=== PATIENT | female | born 1940 | race Caucasian/White ===

== ENCOUNTER 2021-10-11 10:27 | Inpatient (IN) | payer MEDICARE, MEDICAID ==
[2021-10-11] MEDS ORDERED: Sodium Chloride 0.9% 10 ML Syringe FLUSH PRN (11:02)
[2021-10-11] MEDS ORDERED: Ondansetron 4 MG/2 ML SDV IVPUSH ONE (11:02)
[2021-10-11] MEDS ORDERED: Pantoprazole 40 MG Vial IVPUSH ONE (11:04)
[2021-10-11] MEDS ORDERED: Sodium Chloride 0.9% 1,000 ML IV SCH (11:15)
[2021-10-11] MEDS ORDERED: Acetaminophen 325 MG Tab PO PRN (16:51)
[2021-10-11 19:03] LABS: HEMOGLOBIN A1C 5.8 %
[2021-10-11] MEDS: Metoprolol Tartrate 25 MG Tab PO SCH (20:07)
[2021-10-11] MEDS: Pantoprazole 40 MG Vial IV SCH (20:07)
[2021-10-11] MEDS ORDERED: Oxybutynin 5 MG Tab PO SCH (21:00)
[2021-10-11] MEDS: Sodium Chloride 0.9% 1,000 ML IV SCH (21:04)
[2021-10-12] MEDS: Sodium Chloride 0.9% 1,000 ML IV SCH ×2 (05:24→12:50)
[2021-10-12] MEDS ORDERED: Lisinopril 20 MG Tab PO SCH (09:00)
[2021-10-12] MEDS: Metoprolol Tartrate 25 MG Tab PO SCH (09:09)
[2021-10-12] MEDS: Pantoprazole 40 MG Vial IV SCH (09:11)
== END 2021-10-12 16:07 | disposition home or self-care (01) | DRG 378 ==
LOC: JD.ED 10:27 → JD.MS 13:09
PROVIDERS: ADMIT Emergency Medicine; ATTEND Internal Medicine
DX: K92.0 Hematemesis (principal); K92.1 Melena; K25.4 Chronic or unspecified gastric ulcer with hemorrhage; D62 Acute posthemorrhagic anemia; T39.395A Adverse effect of other nonsteroidal anti-inflammatory drugs [NSAID], initial encounter; I25.10 Atherosclerotic heart disease of native coronary artery without angina pectoris; I10 Essential (primary) hypertension; M19.90 Unspecified osteoarthritis, unspecified site; Z20.822 Contact with and (suspected) exposure to COVID-19; Z79.01 Long term (current) use of anticoagulants; Z79.82 Long term (current) use of aspirin; Z95.5 Presence of coronary angioplasty implant and graft; Z79.899 Other long term (current) drug therapy
CPT/HCPCS: 36415; 80053; 85025; 85610; 86850; 86900; 86901; 93005; C9113; J2405; J7030; U0002; 83036; 85014; 85018; 96374; 96375; 99285-25; A9270-GY

== ENCOUNTER 2021-11-14 06:46 | Day surgery (SDC) | payer MEDICARE, MEDICAID ==
[~2021-11-14 06:46] MED LIST: Lactated Ringers 1,000 ML IV SCH; Lidocaine 1%/Sod Bicarbonate in NS 8.4% 1 ML Syringe IDERM PRN; Sodium Chloride 0.9% 10 ML Syringe FLUSH PRN; Sodium Chloride 0.9% 10 ML Syringe FLUSH SCH
[2021-11-14] MEDS ORDERED: fentaNYL 100 MCG/2 ML SDV ONE (07:05)
[2021-11-14] MEDS ORDERED: Propofol 200 MG/20 ML SDV ONE (07:05)
[2021-11-14] MEDS ORDERED: Lidocaine 1% 4 ML ONE (07:59)
== END 2021-11-14 09:39 | disposition home or self-care (01) ==
LOC: JD.SDS 06:46
PROVIDERS: ATTEND Surgery
DX: D12.0 Benign neoplasm of cecum (principal); D12.2 Benign neoplasm of ascending colon; K57.30 Diverticulosis of large intestine without perforation or abscess without bleeding; K57.10 Diverticulosis of small intestine without perforation or abscess without bleeding; K44.9 Diaphragmatic hernia without obstruction or gangrene; I48.91 Unspecified atrial fibrillation; I25.10 Atherosclerotic heart disease of native coronary artery without angina pectoris; E78.5 Hyperlipidemia, unspecified; I10 Essential (primary) hypertension; Z98.890 Other specified postprocedural states; Z79.01 Long term (current) use of anticoagulants; Z79.899 Other long term (current) drug therapy
CPT/HCPCS: 43235; 45380; 45381; 45385; J2704; J7120; 00813; 99100; J3010

== ENCOUNTER 2021-12-28 17:27 | Inpatient (IN) | payer MEDICARE, MEDICAID ==
[2021-12-28] MEDS ORDERED: Sodium Chloride 0.9% 10 ML Syringe FLUSH PRN (18:06)
[2021-12-28] MEDS ORDERED: Iopamidol 755 Mg/ML 100 ML Bottle IVPUSH ONE (18:50)
[2021-12-28] MEDS ORDERED: Sodium Chloride 0.9% 10 ML Syringe FLUSH ONE (18:50)
[2021-12-28] MEDS ORDERED: Sodium Chloride 0.9% 100 ML IV SCH (19:00)
[2021-12-29] MEDS ORDERED: Sodium Chloride 0.9% 10 ML Syringe FLUSH PRN (00:15)
[2021-12-29] MEDS ORDERED: Acetaminophen 325 MG Tab PO PRN (00:18)
[2021-12-29] MEDS ORDERED: Capsaicin 0.1% Cream 42.5 GM Tube TOP PRN (07:06)
[2021-12-29] MEDS ORDERED: Triamcinolone Acetonide 0.1% Crm 15 GM Tube TOP SCH (09:00)
[2021-12-29] MEDS ORDERED: CYCLOSPORINE EYEBOTH SCH (09:00)
[2021-12-29] MEDS ORDERED: Lisinopril 20 MG Tab PO SCH (09:00)
[2021-12-29] MEDS ORDERED: Metoprolol Tartrate 25 MG Tab PO SCH (09:00)
[2021-12-29] MEDS ORDERED: Apixaban 5 MG Tab PO SCH (09:00)
[2021-12-29] MEDS ORDERED: Nystatin Crm 30 GM Tube TOP SCH (09:00)
[2021-12-29] MEDS ORDERED: Pantoprazole 40 MG Tab.CR PO SCH (09:00)
[2021-12-29] MEDS ORDERED: Oxybutynin 5 MG Tab.ER PO SCH (21:00)
[2021-12-29] MEDS ORDERED: atorvaSTATin 20 MG Tab PO SCH (21:00)
== END 2021-12-29 17:35 | disposition home health service (06) | DRG 93 ==
LOC: JD.ED 17:27 → JD.MS 20:21
PROVIDERS: ADMIT Emergency Medicine; ATTEND Internal Medicine
DX: I63.9 Cerebral infarction, unspecified (principal); R47.1 Dysarthria and anarthria; Z66 Do not resuscitate; N18.32 Chronic kidney disease, stage 3b; I48.91 Unspecified atrial fibrillation; H91.90 Unspecified hearing loss, unspecified ear; I25.10 Atherosclerotic heart disease of native coronary artery without angina pectoris; I10 Essential (primary) hypertension; M19.90 Unspecified osteoarthritis, unspecified site; E66.9 Obesity, unspecified; Z79.01 Long term (current) use of anticoagulants; Z79.82 Long term (current) use of aspirin; Z79.899 Other long term (current) drug therapy; Z95.5 Presence of coronary angioplasty implant and graft; Z86.19 Personal history of other infectious and parasitic diseases; Z90.89 Acquired absence of other organs; Z68.35 Body mass index [BMI] 35.0-35.9, adult
CPT/HCPCS: 36415; 70450; 70450-26; 70496; 70496-26; 70498; 70498-26; 70551; 70551-26; 80053; 82947; 83735; 84484; 85025; 85610; 85730; 92610-GN; 93005; 93010; 96360; 97116-GP; 97162-GP; 99284; 99285-25; A9270-GY; J3490; Q9967

== ENCOUNTER 2023-07-23 07:50 | Day surgery (SDC) | payer MEDICARE, MEDICAID ==
[~2023-07-23 07:50] MED LIST changes: -Lidocaine 1%/Sod Bicarbonate in NS 8.4% 1 ML Syringe IDERM PRN
[2023-07-23 08:38] LABS: INR 0.97; PROTHROMBIN TIME 10.4 SECONDS (9.7-12.0)
[2023-07-23] MEDS ORDERED: ceFAZolin 2 GM Vial ONE (09:03)
[2023-07-23] MEDS ORDERED: Propofol 200 MG/20 ML SDV ONE (09:04)
[2023-07-23] MEDS ORDERED: Midazolam 1 MG/ML 2 ML SDV ONE (09:04)
[2023-07-23] MEDS ORDERED: EPINEPHrine 1 MG/ML SDV ONE (10:34)
[2023-07-23] MEDS ORDERED: Ropivacaine 0.5% 5 MG/ML 30 ML SDV ONE (10:34)
[2023-07-23] MEDS: Morphine 8 MG, EPINEPHrine 0.3 MG, Cefuroxime 750 MG, Ketorolac 30 MG, Sodium Chloride ... PRN ×10 (10:50→12:32)
[2023-07-23] MEDS: Tranexamic Acid 1,000 MG/10 ML Vial ONE ×2 (10:51→12:40)
[2023-07-23] MEDS: Vancomycin 1 GM SDV ONE ×2 (10:51→12:40)
[2023-07-23] MEDS ORDERED: ePHEDrine 50 MG/ML SDV ONE (11:36)
[2023-07-23] MEDS ORDERED: Lidocaine 1% 4 ML ONE (12:04)
[2023-07-23] MEDS ORDERED: Phenylephrine 1% 10 MG/ML SDV ONE (12:14)
[2023-07-23] MEDS ORDERED: fentaNYL 100 MCG/2 ML SDV ONE (12:41)
[2023-07-23] MEDS ORDERED: HYDROmorphone 0.5 MG/0.5 ML Syringe IVPUSH PRN (13:35)
[2023-07-23] MEDS ORDERED: fentaNYL 100 MCG/2 ML SDV IVPUSH PRN (13:35)
[2023-07-23] MEDS ORDERED: Ondansetron 4 MG/2 ML SDV IVPUSH PRN (13:35)
[2023-07-23] MEDS: Acetaminophen/HYDROcodone 325-5 MG Tab PO PRN ×2 (14:44→15:12)
[2023-07-23] MEDS ORDERED: Acetaminophen/HYDROcodone 325-5 MG Tab PO ONE (15:10)
== END 2023-07-23 15:25 | disposition home or self-care (01) ==
LOC: JD.SDS 07:50
PROVIDERS: ATTEND Orthopaedic Surgery
DX: M17.11 Unilateral primary osteoarthritis, right knee (principal); I10 Essential (primary) hypertension; I25.10 Atherosclerotic heart disease of native coronary artery without angina pectoris; I48.91 Unspecified atrial fibrillation; E78.5 Hyperlipidemia, unspecified; E66.9 Obesity, unspecified; Z79.01 Long term (current) use of anticoagulants; Z68.37 Body mass index [BMI] 37.0-37.9, adult; Z79.899 Other long term (current) drug therapy; Z98.890 Other specified postprocedural states; Z88.8 Allergy status to other drugs, medicaments and biological substances
CPT/HCPCS: 0055T; 27447; 36415; 64447; 73560; 85610; 97116; 97161; A9270; C1713; C1776; J0171; J0690; J0697; J1885; J2250; J2270; J2371; J2704; J2795; J3010; J3370; J7030; J7120; J3490